=== PATIENT | female | born 1965 | race Hispanic/Latino ===

== ENCOUNTER → 2017-07-08 | Outpatient (CLI) | payer OTHER ==
[~2017-07-08] MED LIST: GADOBENATE DIMEGLUMINE 1 ML IV ONE; SODIUM CHLORIDE 0.9% 50ML 50 ML ONE
--- NOTE | 2017-07-09 07:49 | Diagnostic Imaging Report ---
Examination: MRA HEAD WITHOUT CONTRAST; MRA NECK WITHOUT AND WITH CONTRAST History: 52-year-old female with headaches, dizziness, nausea and weakness for the past 3 days. Comparison studies: None Technique: 2-D and 3-D [id number] MR angiograms of the cervical and intracranial circulations were obtained. MIP images of the arteries were isolated into the right and left cervical circulations and anterior and posterior intracranial circulations, 180 degree projections. Sagittal and coronal MPR images, and axial source images are available for evaluation. Degree of stenosis at the carotid bulbs, if present, will be calculated using NASCET criteria where the smallest diameter at the location of stenosis is compared to the diameter of the more distal non-diseased vessel lumen. Intravenous contrast: 20 mL MultiHance. Findings: Cervical MRA Aortic arch: Normal 3 great vessel origin. Patent. Internal carotid arteries: No flow abnormalities at the origins of the common carotid arteries, the cervical carotid bifurcations or in the cervical segments. Vertebral arteries: No flow abnormalities at the origins of the vertebral arteries or through its cervical segments (V1-V3). Intracranial MRA: Internal carotid arteries: Patent.. Anterior cerebral arteries: Patent A1 segments.. Middle cerebral arteries: Patent M1 segments.. Vertebrobasilar circulation: Patent. Posterior cerebral arteries: Patent bilaterally with direct/ origin on the right. Anatomical variants: Anterior communicating arteries: Patent. Posterior communicating arteries: Patent on the left. Vertebral arteries:Codominant. IMPRESSION: No cervical or intracranial arterial stenosis or occlusion or vascular malformation. Signed by: Dr. Mary Gtz M.D. on 07/09/2017 7:45 AM
== END ==
LOC: MRI 17:33
PROVIDERS: ATTEND Family Medicine
DX: R51 Headache (principal); R42 Dizziness and giddiness; R11.2 Nausea with vomiting, unspecified; R25.1 Tremor, unspecified; H02.401 Unspecified ptosis of right eyelid
CPT/HCPCS: 70544; 70549